=== PATIENT | female | born 1970 | race Caucasian/White ===

== ENCOUNTER 2017-01-16 17:24 | Emergency (ER) | payer BC ==
[2017-01-16 18:03] VITALS: BP 118/73
--- NOTE | 2017-01-16 18:46 | UC ---
Lower Extremity/Ankle HPI - HPI Summary HPI Summary: complaint of left 5th tpoe p[ain stubbed her toe thrsday seemed to get better and then for the last 2 days it has become more painful and discolred difficuklt to walk d/t pain difficulty flexing toe not taking any medication for pain - History of Current Complaint Chief Complaint: UCLowerExtremity Stated Complaint: TOE INJURY Time Seen by Provider: 01/16/17 18:41 Hx Obtained From: Patient Hx Last Menstrual Period: 12/30/16 - Allergies/Home Medications Allergies/Adverse Reactions: Allergies Allergy/AdvReac Type Severity Reaction Status Date / Time No Known Allergies Allergy Verified 12/06/16 07:24 Home Medications: Home Medications Calcium 1 PO DAILY 01/16/17 [History] Glucosamine Hydrochloride [Glucosamine] 1 PO DAILY 01/16/17 [History] PMH/Surg Hx/FS Hx/Imm Hx Previously Healthy: Yes Endocrine History Of: Denies: Diabetes, Thyroid Disease Cardiovascular History Of: Denies: Cardiac Disorders, Hypertension, Pacemaker/ICD Respiratory History Of: Denies: COPD, Asthma GI/ History Of: Denies: Ulcer, Renal Disease - Surgical History Surgical History: Yes Surgery Procedure, Year, and Place: RIGHT KN[place]OP[place] [facility] [place]OP[place] 08/[place] [facility] [place] TONSILLECTOM[place] 1977. LEFT OOPHERECTOMY 2012 - Family History Known Family History: Negative: Hypertension, Diabetes, Respiratory Disease - no asthma - Social History Occupation: Employed Full-time Lives: With Family Alcohol Use: Weekly Alcohol Amount: 3 PER WEEK Substance Use Type: None Smoking Status (MU): Former Smoker Type: Cigarettes Amount Used/How Often: 1/2 PACK A DAY Have You Smoked in the Last Year: No When Did the Patient Quit Smoking/Using Tobacco: 1997 - Immunization History Most Recent Influenza Vaccination: Review of Systems Constitutional: Negative Skin: Negative Eyes: Negative ENT: Negative Respiratory: Negative Cardiovascular: Negative Gastrointestinal: Negative Genitourinary: Negative Motor: Negative Neurovascular: Negative Musculoskeletal: Other: - right 5th toe pain Neurological: Negative Psychological: Negative All Other Systems Reviewed And Are Negative: Yes Physical Exam Triage Information Reviewed: Yes Appearance: No Pain Distress, Well-Nourished Vital Signs: Initial Vital Signs Temp 97.6 F 01/16/17 17:57 Pulse 84 01/16/17 17:57 Resp 18 01/16/17 17:57 BP 118/73 01/16/17 17:57 Pulse Ox 99 01/16/17 17:57 Vital Signs Reviewed: Yes Eyes: Positive: Conjunctiva Clear ENT: Positive: Pharynx normal, TMs normal Neck: Positive: No Lymphadenopathy Respiratory: Positive: Lungs clear, Normal breath sounds, No respiratory distress Cardiovascular: Positive: RRR, No Murmur, Pulses Normal Abdomen Description: Positive: Nontender, Soft Bowel Sounds: Positive: Present Musculoskeletal: Positive: Other: - No bony deformities, tenderness in fifth toe -with edema, Full ROM dorsi/plantar flexion, inversion & eversion. no metacarpal tenderness Lower Extremity Course/Dx - Differential Dx/Diagnosis Differential Diagnosis/HQI/PQRI: Contusion, Fracture (Closed) Provider Diagnoses: nondisplaced intaarticular fracture head of fifth proximal phalanx Discharge - Discharge Plan Condition: Stable Disposition: HOME Patient Education Materials: RICE Therapy (ED), Toe Fracture (ED) Referrals: Juancho Guzmán MD [Medical Doctor] - Additional Instructions: Please call financial services specialist for a followup appointment. keep your toes any taped together until you are seen by orthopedics They will evaluate and determine your treatment. It is important to keep weight off of your fracture. Take acetaminophen or ibuprofen to control pain and reduce inflammation. Please review your discharge instructions. If your symptoms worsen call financial services specialist or return to urgent care.
--- NOTE | 2017-01-16 19:15 | RAD ---
Indication: Pain medial aspect proximal phalanx LEFT fifth toe following stubbing injury 4 days ago. Comparison: March 25, 2012 Technique: 3 views LEFT fifth toe REPORT AND IMPRESSION: Grossly nondisplaced intra-articular fracture at the medial margin of the head of the fifth proximal phalanx. Overlying soft tissue swelling. Negative for additional fracture or articular malalignment.
== END 2017-01-16 20:01 | disposition home or self-care (01) ==
LOC: UCEAST 17:24
DX: S92.515A Nondisplaced fracture of proximal phalanx of left lesser toe(s), initial encounter for closed fracture (principal); W22.8XXA Striking against or struck by other objects, initial encounter; Y93.9 Activity, unspecified; Y92.9 Unspecified place or not applicable; Z87.891 Personal history of nicotine dependence
CPT/HCPCS: 99211; G0463

== ENCOUNTER 2018-06-06 18:12 | Emergency (ER) | payer BC, OTHER ==
[2018-06-06 18:39] VITALS: BP 138/89
[2018-06-06] MEDS ORDERED: BSS OPTH.SOL* BTL OPHTHALMIC ONE (19:14)
[2018-06-06] MEDS ORDERED: Tetracaine 0.5% OPTH.SOL 15ML* BTL ONE (19:14)
[2018-06-06] MEDS ORDERED: Fluorescein Sod TOPICAL 0.6* 0.6 MG TEST OPHTHALMIC ONE (19:15)
[2018-06-06] MEDS ORDERED: Tetracaine 0.5% OPTH.SOL 4 ML* 1 DROP BTL ONE (19:17)
--- NOTE | 2018-06-06 20:09 | UC ---
Eye Complaint HPI - HPI Summary HPI Summary: sudden onset of left eye pain---began this afternoon---reminded her of a past episode of a corneal ulceration she had---she removed he contact--pain continues. light does both her left eye-her eye feels like the is a lt of pressure in it ---no drainage from her eye-- - History of Current Complaint Chief Complaint: UCEye Stated Complaint: EYE COMPLAINT Time Seen by Provider: 06/06/18 19:13 Hx Obtained From: Patient Hx Last Menstrual Period: now ?: No Onset/Duration: Sudden Onset, Lasting Hours, Still Present Timing: Constant Pain Intensity: 4 Pain Scale Used: 0-10 Numeric Character: Throbbing - /heaviness Aggravating Factor(s): Light Alleviating Factor(s): Darkness Associated Signs And Symptoms: Positive: Drainage (Clear) - Allergies/Home Medications Allergies/Adverse Reactions: Allergies Allergy/AdvReac Type Severity Reaction Status Date / Time No Known Allergies Allergy Verified 06/06/18 18:39 PMH/Surg Hx/FS Hx/Imm Hx Previously Healthy: Yes - Surgical History Surgical History: Yes Surgery Procedure, Year, and Place: RIGHT KNEE SCOPING 2005 [facility] [place]. REDUCTION MAMMOPLASTY 08/30 AND FEBRUARY 2016 [facility] [place]. TONSILLECTOMY 1977. LEFT OOPHERECTOMY 2012 - Family History Known Family History: Positive: Diabetes Negative: Hypertension, Respiratory Disease - no asthma - Social History Occupation: Employed Full-time Lives: With Family Alcohol Use: Occasionally Alcohol Amount: 3 PER WEEK Substance Use Type: Marijuana Smoking Status (MU): Former Smoker Type: Cigarettes Amount Used/How Often: 1/2 PACK A DAY Have You Smoked in the Last Year: No When Did the Patient Quit Smoking/Using Tobacco: 1997 - Immunization History Most Recent Influenza Vaccination: Review of Systems Constitutional: Negative Skin: Negative Eyes: Other - left eye pain heaviness, photophobia ENT: Negative Respiratory: Negative Cardiovascular: Negative Gastrointestinal: Negative Genitourinary: Negative Motor: Negative Neurovascular: Negative Musculoskeletal: Negative Neurological: Negative Psychological: Negative Is Patient Immunocompromised?: No All Other Systems Reviewed And Are Negative: Yes Physical Exam Triage Information Reviewed: Yes Appearance: Well-Appearing, No Pain Distress, Well-Nourished Vital Signs: Initial Vital Signs Temp 97.7 F 06/06/18 18:34 Pulse 65 06/06/18 18:34 Resp 18 06/06/18 18:34 BP 138/89 06/06/18 18:34 Pulse Ox 99 06/06/18 18:34 Vital Signs Reviewed: Yes Eye Exam: Other - appears to have a ptegium at 4:00 in left eye (patient believes it has been present for 2 weeks Eyes: Positive: Conjunctiva Clear - right, Conjunctiva Inflamed - left ENT Exam: Normal ENT: Positive: Normal ENT inspection, Hearing grossly normal, Pharynx normal, TMs normal, Uvula midline. Negative: Nasal congestion, Trismus, Muffled voice, Hoarse voice, Sinus tenderness Dental Exam: Normal Neck exam: Normal Neck: Positive: Supple, Nontender, No Lymphadenopathy Respiratory Exam: Normal Respiratory: Positive: Chest non-tender, No respiratory distress, No accessory muscle use Cardiovascular Exam: Normal Cardiovascular: Positive: RRR, Pulses Normal, Brisk Capillary Refill Musculoskeletal Exam: Normal Musculoskeletal: Positive: Strength Intact, ROM Intact, No Edema Neurological Exam: Normal Neurological: Positive: Alert, Muscle Tone Normal Psychological Exam: Normal Psychological: Positive: Normal Response To Family Skin Exam: Normal Re-Evaluation - Re-Evaluation First Eval Change: Improved - patient got complete pain relief with tetraciane and visual acuity was completed od 20/25 os 20/50 ou 20/25 , ful. stain completed no ulcers or abrasions noted Eye Complaint Course/Dx - Course Course Of Treatment: no optholo. 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 will d.c patient from urgent care and have patient evaluated at [facility] emergency depatment for an acute opthomology assessment - Differential Dx/Diagnosis Provider Diagnoses: Left eye pain, photophobia Discharge - Sign-Out/Discharge Documenting (check all that apply): Patient Departure All imaging exams completed and their final reports reviewed: No Studies - Discharge Plan Condition: Stable Disposition: HOME-RECOMMEND TO ED Patient Education Materials: Eye Pain (ED) Referrals: Lupe De La Vega MD [Primary Care Provider] - Additional Instructions: We are discharging you to go directly to the [facility] Emergency department for further evaluation of your eye pain - Billing Disposition and Condition Condition: STABLE Disposition: Home-Recommend to ED
[2018-06-06] MEDS ORDERED: Ibuprofen TAB* 600 MG PO ONE (20:17)
== END 2018-06-06 20:45 | disposition home health service (06) ==
LOC: UCEAST 18:12
DX: H57.12 Ocular pain, left eye (principal); Z87.891 Personal history of nicotine dependence; H53.142 Visual discomfort, left eye
CPT/HCPCS: 99202; A9270-GY; G0463

== ENCOUNTER → 2018-10-26 05:57 | Day surgery (SDC) | payer BC ==
[~2018-10-26 05:57] MED LIST: Buffered Lidocaine 0.9% SYRIN* 5 ML/SYR SYRINGE INTRADERM ONE; Buffered Lidocaine 1% SYRIN* 1 ML/SYRINGE ONE; Dexamethasone IV* 4 MG/ML 1 ML (4 MG) ONE; Ibuprofen TAB* 600 MG PO PRN; Ketorolac INJ* 30 MG/ML 1 ML VIAL ONE; Lactated Ringers 1000 ML Bag* 1,000 ML IV SCH; Lidocaine 2% PF * 5 ML VIAL ONE; Metoclopramide IV* 5 MG/ML 2 ML VIAL ONE; Midazolam* 1 MG/ML 2 ML VIAL (2 MG) ONE; Ondansetron INJ* 2 MG/ML VIAL ONE; Propofol* 10 MG/ML 20 ML BTL ONE; Scopolamine 1.5 mg* PATCH ONE; ceFAZolin 2 GM PREMIX in ORs 2 GM/50 ML BAG IVPB ONE; fentaNYL* 50 MCG/ML 2 ML VIAL (100 MCG VIAL) ONE; oxyCODONE/Acetamin 5/325 MG* TAB PO PRN
[2018-10-26 07:11] LABS: Hematocrit 35 % (35-47); Hemoglobin 12.2 g/dl (12.0-16.0); Mean Corpuscular HGB Conc 35 g/dl (31-36); Mean Corpuscular Hemoglobin 31 pg (27-31); Mean Corpuscular Volume 89 fL (80-97); Mean Platelet Volume 7.4 fL (7.4-10.4); Platelet Count 262 10^3/ul (150-450); Red Blood Count 3.94 10^6/ul (4.00-5.40); Red Cell Distribution Width 13 % (10.5-15); White Blood Count 5.5 10^3/ul (3.5-10.8)
[2018-10-26 10:17] VITALS: BP 127/78
--- NOTE | 2018-10-26 13:58 | OP ---
CC: [facility] * DATE OF OPERATION: 10/26/18 - [facility] DATE OF : 66 SURGEON: Juan Francisco Servin MD. CONTROL ENGINEER: Dr. Cristino Santos. PRE-OP DIAGNOSES: Enlarged fibroid uterus, a 3-cm fibroid at the junction of the cervix and the uterus, menorrhagia, retained intrauterine device. POST-OP DIAGNOSES: Enlarged fibroid uterus, a 3-cm fibroid at the junction of the cervix and the uterus, menorrhagia, retained intrauterine device. OPERATIVE PROCEDURE: Dilation, hysteroscopy, MyoSure removal of fibroid, hysteroscopic removal of intrauterine device, and curettage. ESTIMATED BLOOD LOSS: Minimal, less than 20 cc. FLUIDS: In 1200 cc and out 1000. The MyoSure collection system was no longer operating. A large amount of fluid was on the floor, but counting the bags and counting what was suctioned, the deficit is approximately 200 cc. FINDINGS: Approximately 3 cm fibroid seen hysteroscopically at the junction of the internal os and it had a pedicle attached to the posterior endometrium. The remainder of the endometrium appeared normal. Both tubal ostia were visualized. The uterus sounded to 10. The intrauterine device was within the uterus with the strings approximately at the level of the internal os and the intrauterine device was examined when it was removed and found to be intact. The cervix is posterior and appears normal and no adnexal masses are palpated on exam. COMPLICATIONS: None. COUNTS: Sponge, lap, and needle counts were correct x2. CONDITION: The patient was brought to the recovery room awake and in stable condition. DESCRIPTION OF PROCEDURE: The patient was brought to the operating room and general anesthesia was found to be adequate. The patient was prepped and draped in the usual sterile fashion in the dorsal lithotomy position. Exam under anesthesia was performed. Urine output with a straight cath was 600 cc of clear urine. Cervix was posterior, appeared normal. The IUD strings were not visualized at the cervix. The anterior lip of the cervix was grasped with a single tooth tenaculum. The cervix was gently and easily dilated with the graduated Hegar dilators and the MyoSure was introduced. A large, round fibroid was seen at approximately the level of the internal os. The IUD strings were seen somewhat adjacent to this. The IUD strings were grasped with a tiny grasper and the IUD was easily removed intact. The MyoSure medium was used to excise the fibroid at the pedicle. The hysteroscope was advanced, the fundus was visualized. No other polyps were seen. Both tubal ostia were visualized. The fibroid was removed in pieces with the polyp forceps and curettage was performed and a separate specimen of endometrial curettings was sent. The single-tooth tenaculum was removed from the cervix. Excellent hemostasis was noted. All instruments were removed and the patient was brought to the recovery room awake and in stable condition. [id number]/[facility] #: [id number] MTDD
== END | disposition home or self-care (01) ==
LOC: OR 05:57
PROVIDERS: ATTEND Obstetrics & Gynecology
DX: D25.0 Submucous leiomyoma of uterus (principal); N92.4 Excessive bleeding in the premenopausal period; Z87.891 Personal history of nicotine dependence; Z97.5 Presence of (intrauterine) contraceptive device
CPT/HCPCS: 36415; 81025; 85027; 86850; 86900; 86901; 88300; 88305; A9270-GY; J0690; J1100; J1885; J2250; J2405; J2704; J2765; J3010

== ENCOUNTER 2019-06-24 17:50 | Observation (INO) | payer BC ==
[2019-06-24] MEDS ORDERED: NS 0.9% 1000 ML** 1,000 ML IV ONE (17:59)
--- NOTE | 2019-06-24 18:03 | ED ---
Neurological HPI - HPI Summary HPI Summary: This pt is a 48 y/o female [facility] [place] [place]/o numbness and tingling on right hand. Pt reports at approximately 1515 today pt was having difficulty entering a password into her computer. Suddenly pt noticed her right fingers were numb and tingling, described as "pins and needles." Pt also felt the right side of her face went numb and she looked at her face on her iPhone and looked like she had facial droop. Pt notes this event of tingling and numbness lasted approximately 10 minutes. Pt then went to her work meeting and states she couldn 't focus but her tingling had already resolved. She notes she then developed pounding headache. Currently she states feeling stressed. Denies hx of HTN and actually has had blood pressure on the low side her whole life until a few weeks ago. Denies hx of DM and high cholesterol. Pt reports she went back on the pill a few months ago. - History of Current Complaint Stated Complaint: I HAVE STROKE LIKE SYMPTOMS PER PT Hx Obtained From: Patient Hx Last Menstrual Period: now Onset/Duration: Started hours ago, Resolved Timing: Sudden Onset Onset Severity: Moderate Neurological Deficit Location: Facial, RUE Character: Numbness/Tingling, Other: - facial droop Aggravating: Nothing Alleviating: Nothing Associated Signs and Symptoms: Positive: Headache, Numbness. Negative: Fever - Allergy/Home Medications Allergies/Adverse Reactions: Allergies Allergy/AdvReac Type Severity Reaction Status Date / Time No Known Allergies Allergy Verified 10/26/18 06:45 Home Medications: Home Medications NK [No Home Medications Reported] 06/24/19 [History Confirmed 06/24/19] PMH/Surg Hx/FS Hx/Imm Hx Endocrine/Hematology History: Reports: Hx Anemia - ON IRON Denies: Hx Diabetes, Hx Thyroid Disease Cardiovascular History: Reports: Other Cardiovascular Problems/Disorders - HX PERICARDITIS 17 YRS AGO Denies: Hx Hypertension, Hx Pacemaker/ICD Respiratory History: Denies: Hx Asthma, Hx Chronic Obstructive Pulmonary Disease (COPD) GI History: Denies: Hx Ulcer History: Reports: Other Problems/Disorders - BENIGN CSYST DOES FOLLOWUP WITH Denies: Hx Dialysis, Hx Renal Disease Musculoskeletal History: Denies: Other Musculoskeletal History Sensory History: Reports: Hx Contacts or Glasses - CONTACTS Denies: Hx Hearing Aid Opthamlomology History: Reports: Hx Contacts or Glasses - CONTACTS Psychiatric History: Denies: Hx Panic Disorder - Cancer History Hx Chemotherapy: No Hx Radiation Therapy: No - Surgical History Surgery Procedure, Year, and Place: RIGHT KNEE SCOPING 2005 [facility] [place]. REDUCTION MAMMOPLASTY 08/30 AND FEBRUARY 2016 [facility] [place]. TONSILLECTOMY 1977. LEFT OOPHERECTOMY 2012 Hx Anesthesia Reactions: No Infectious Disease History: Denies: Hx Hepatitis, Hx Human Immunodeficiency Virus (HIV) - Family History Known Family History: Positive: Diabetes Negative: Hypertension, Respiratory Disease - no asthma - Social History Alcohol Use: Occasionally Alcohol Amount: 3 PER WEEK Substance Use Type: Reports: Marijuana Smoking Status (MU): Former Smoker Type: Cigarettes Amount Used/How Often: 1/2 PACK A DAY Have You Smoked in the Last Year: No Review of Systems Negative: Fever, Chills ENT: Negative Cardiovascular: Negative Neurological: Other - POSITIVE: facial droop Positive: Headache, Paresthesia, Numbness All Other Systems Reviewed And Are Negative: Yes Physical Exam - Summary Physical Exam Summary: GENERAL: Patient is a well-developed and nourished female who is lying comfortable in the stretcher. Patient is not in any acute respiratory distress. HEAD AND FACE: Normocephalic EYES: PERRLA, EOMI x 2. EARS: Hearing grossly intact. MOUTH: Oropharynx within normal limits. NECK: Supple, trachea is midline, no adenopathy, no JVD, no carotid bruit. CHEST: Symmetric, no tenderness at palpation LUNGS: Clear to auscultation bilaterally. No wheezing or crackles. CVS: Regular rate and rhythm, S1 and S2 present, no murmurs or gallops appreciated. ABDOMEN: Soft, non-tender. Bowel sounds are normal. No abnormal abdominal pulsations. EXTREMITIES: Full ROM in all major joints, no edema, no cyanosis or clubbing. NEURO: Alert and oriented x 3. No acute neurological deficits. Speech is normal and follows commands. Cranial nerves II-XII grossly intact, no dysmetria finger to nose, nml heel to solis SKIN: Dry and warm Triage Information Reviewed: Yes Vital Signs On Initial Exam: Initial Vitals Temp Pulse Resp BP Pulse Ox 97.6 F 90 18 213/117 97 06/24/19 17:58 06/24/19 17:58 06/24/19 17:58 06/24/19 17:58 06/24/19 17:58 Vital Signs Reviewed: Yes - Layla Coma Scale Best Eye Response: 4 - Spontaneous Best Motor Response: 6 - Obeys Commands Best Verbal Response: 5 - Oriented Coma Scale Total: 15 Diagnostics - Laboratory Result Diagrams: 06/24/19 18:49 06/24/19 18:49 Lab Statement: Any lab studies that have been ordered have been reviewed, and results considered in the medical decision making process. - Radiology Chest XR Radiology Interpretation Completed By: ED Physician Summary of Radiographic Findings: No acute process. - CT Brain CT CT Interpretation Completed By: Radiologist Summary of CT Findings: IMPRESSION: 1. No acute intracranial abnormality. 2. If further evaluation is clinically indicated, an MRI of the brain is recommended. Dr. Parks has reviewed this report. - EKG 19:15 Cardiac Rate: NL - at 61 bpm EKG Rhythm: Sinus Rhythm Summary of EKG Findings: normal sinus rhythm at 61 bpm. Normal axis. - Additional Comments Diagnostic Additional Comments: Brain MRI, as read by radiologist IMPRESSION: 1. There is no restricted diffusion within the brain to suggest an acute infarct. 2. There is a focus of magnetic susceptibility blood products/hemosiderin within the left frontal white matter, without acute hemorrhage on recent head CT. This measures 5-6 mm in diameter. Cavemous malformation and amyloid angiopathy are within the differential. A follow-up MRI with/without contrast is recommended. 3. There are a few small foci of FLAIR hyperintensity within the cerebral white matter. This white matter disease is nonspecific as to etiology, as detailed above. NIH Scale - NIH Scale Level of Consciousness: Alert/Keenly Responsive Ask Patient the Month and His/Her Age: Both Correct Ask Pt to Open/Close Eyes and Electronic Masking System Operator/Release Non-Paretic Hand: Both Correctly Best Gaze (Only Horizontal Eye Movement): Normal Visual Field Testing: No Visual Loss Facial Paresis-Pt to Smile & Close Eyes or Grimace Symmetry: Normal/Symmetrical Motor Function - Right Arm: No Drift-Holds 10 Seconds Motor Function - Left Arm: No Drift-Holds 10 Seconds Motor Function - Right Leg: No Drift-Holds 10 Seconds Motor Function - Left Leg: No Drift-Holds 10 Seconds Limb Ataxia-Must be out of Proportion to Weakness Present: Absent Sensory (Use Pinprick to Test Arms/Legs/Trunk/Face): Normal Best Language (Describe Picture, Name Items): No Aphasia Dysarthria (Read Several Words): Normal Extinction and Inattention: No Abnormality Total Score: 0 Course/Dx - Course Course Of Treatment: Rodo Campbell called at 175. Pt seen immediately by Dr. Parks. [place] Tele Stroke initiated at 1804. Pt to CT at 1807. Spoke with Dr. Whitley, neurologist from [facility], at 1813. Pt back from CT at 1815. Dr. Lindquist, radiologist, reports negative brain CT at 1829. Assessment/Plan: Pt is a 48 y/o female presenting [facility] c/o numbness and tingling on right arm and numbness on right side of face at approx 1515 today. Physical exam is unremarkable. NIH score is 0. Lab results are unremarkable. Brain CT shows 1. No acute intracranial abnormality. 2. If further evaluation is clinically indicated, an MRI of the brain is recommended. Discussed the case with Dr. Whitley, neurologist from [facility]. Telestroke was initiated. Dr. Whitley recommends admission, MRI, CTA head/neck, lipid panel , hemoglobin A1c. Case discussed with Dr. Rutherford, hospitalist. I discussed results with patient. The patient agrees with this plan. MRI and CTA results pending at time of admission. - Diagnoses Provider Diagnoses: TIA (transient ischemic attack) During the Visit The Following Alert/Code Occurred: Rodo Campbell - 175 - Physician Notifications Discussed Care Of Patient With: Paul Lindquist Time Discussed With Above Provider: 18:29 Instructed by Provider To: Other - Dr. Lindquist, radiologist, reports negative brain CT. [19:05] Case discussed with Dr. Rutherford, hospitalist. - Critical Care Time Critical Care Time: 30-74 min Discharge ED - Sign-Out/Discharge Documenting (check all that apply): Patient Departure - Admit to [facility] Patient Received Moderate/Deep Sedation with Procedure: No - Discharge Plan Condition: Stable Disposition: ADMITTED TO [facility] Referrals: Lupe De La Vega MD [Primary Care Provider] - - Billing Disposition and Condition Condition: STABLE Disposition: Admitted to [facility] - Attestation Statements Document Initiated by Scribe: Yes Documenting Scribe: Migdalia Nicole Provider For Whom Scribe is Documenting (Include Credential): Bartolo Parks MD Scribe Attestation: Migdalia Linton scribed for Bartolo Parks MD on 06/24/19 at 2122. Scribe Documentation Reviewed: Yes Provider Attestation: The documentation as recorded by the scribMigdalia cai accurately reflects the service I personally performed and the decisions made by me, Bartolo Parks MD Status of Scribe Document: Viewed
[2019-06-24] MEDS ORDERED: Labetalol IV* 5 MG/ML 20 ML VIAL IV PUSH ONE (18:52)
[2019-06-24 18:56] LABS: ABS Basophils 0.1 10^3/ul (0-0.2); ABS Eosinophils 0.3 10^3/ul (0-0.6); ABS Lymphocytes 1.8 10^3/ul (1.0-4.8); ABS Monocytes 0.7 10^3/ul (0-0.8); ABS Neutrophils 3.5 10^3/ul (1.5-7.7); Eosinophil % 4.1 %; Hematocrit 40 % (35-47); Hemoglobin 13.9 g/dL (12.0-16.0); Lymphocyte % 28.5 %; Mean Corpuscular HGB Conc 35 g/dL (31-36); Mean Corpuscular Hemoglobin 31 pg (27-31); Mean Corpuscular Volume 90 fL (80-97); Mean Platelet Volume 7.8 fL (7.4-10.4); Nucleated Red Blood Cells % 0.1; Platelet Count 247 10^3/uL (150-450); Red Blood Count 4.48 10^6 /uL (3.70-4.87); Red Cell Distribution Width 13 % (10-15); White Blood Count 6.3 10^3/uL (3.5-10.8)
[2019-06-24 19:04] LABS: INR 0.92 (0.82-1.09)
[2019-06-24] MEDS ORDERED: Aspirin 81 mg CHEW TAB* 81 MG TAB.CHEW PO ONE (19:05)
[2019-06-24] MEDS ORDERED: Clopidogrel TAB* 75 MG PO ONE (19:05)
[2019-06-24 19:15] LABS: Albumin 4.1 g/dL (3.2-5.2); Albumin/Globulin Ratio 1.8 (1-3); BUN/Creatinine Ratio 15.2 (8-20); Calcium 9.1 mg/dL (8.6-10.3); EGFR African American 78.2 (>60); EGFR Non-African American 64.6 (>60); Globulin 2.3 g/dL (2-4); HDL Cholesterol 60.5 mg/dL; Potassium 3.9 mmol/L (3.5-5.0); Total Bilirubin 0.4 mg/dL (0.2-1.0); Total Protein 6.4 g/dL (6.4-8.9)
[2019-06-24] MEDS ORDERED: Iohexol 350* (CONTRAST) 500 ML MDV IV ONE (19:19)
[2019-06-24] MEDS ORDERED: Acetaminophen TAB* 325 MG PO PRN (21:24)
[2019-06-24 22:36] LABS: TSH (Thyroid Stimulating Horm) 2.06 mcIU/mL (0.34-5.60)
[2019-06-24] MEDS ORDERED: Atorvastatin* 80 MG TAB PO ONE (23:15)
[2019-06-25 00:34] LABS: Urine Appearance Clear; Urine Bacteria Absent (Absent); Urine Bilirubin Negative (Negative); Urine Blood 2+ (Negative); Urine Color Yellow; Urine Glucose Negative (Negative); Urine Ketones Negative (Negative); Urine Nitrite Positive (Negative); Urine Protein Negative (Negative); Urine Red Blood Cell 2+(6-10/hpf) (Absent); Urine Specific Gravity 1.018 (1.010-1.030); Urine Squamous Epithelial Cell Present (Absent); Urine Urobilinogen Negative (Negative); Urine White Blood Cell 3+(>20/hpf) (Absent)
--- NOTE | 2019-06-25 02:16 | HP ---
CC: Dr. De La Vega * HISTORY AND PHYSICAL: DATE OF ADMISSION: 06/24/19 PROVIDER: Melody Wyman NP. PRIMARY CARE PROVIDER: Dr. De La Vega. ATTENDING PHYSICIAN WHILE IN THE HOSPITAL: Dr. Ammy Alberts * (dictated by Melody Wyman NP). CHIEF COMPLAINT: Right-sided hand, arm, and facial numbness and tingling. HISTORY OF PRESENT ILLNESS: Ms. Álvarez is a 48-year-old female with a past medical history significant for fibroids, who presented to the emergency room with complaints of numbness and tingling to her right hand, arm, and right face. The patient reports that she was at work today and at approximately 4:05 p.m. she developed numbness and tingling in her hand. She reports that she was trying to type her password in the computer and she typed her password, but what showed up on the screen was not what her password was. She reports shortly after that she developed some numbness and tingling in her hand that progressed up to her arm and to the right side of her face. She reports that these symptoms lasted for about 15 to 20 minutes and were totally resolved by 4: 35 p.m. The patient does report during this time she was having trouble focusing. She denies any difficulty with speech, swallowing or any loss of motor function in her upper or lower extremities. The patient does report that after her numbness and tingling subsided on the right side she did get a severe headache noted behind her left eye. She describes it as a pounding, with mild radiation to the right side. The patient does report that she is in a high stress job at this time, and she is currently filling three positions. She does report that she travels a lot. She recently traveled to [place] and returned on , but she denies any calf or leg pain. Denies any shortness of breath, palpitation, coughing up blood or any other symptoms. Due to the right- sided numbness and tingling a shavonne lyon was called in the emergency room and Telestroke from [place] was consulted who did not recommend tPA. While in the emergency room, the patient had a routine blood work drawn. She had a CTA and an MRI. The CTA of brain that did not show any acute infarct or hemorrhages. The CTA did now show any significant stenosis. Her lab work was within normal limits. Due to the right-sided numbness, facial tingling, and right-sided facial numbness, Hospital Medicine was asked to see and evaluate the patient for admission. PAST MEDICAL HISTORY: Significant for fibroids. PAST SURGICAL HISTORY: 1. Left oophorectomy for a cyst. 2. Right knee surgery. 3. Tonsillectomy. 4. Breast reduction. 5. Fibroid removed. 6. Breast biopsy approximately 2 weeks ago that was negative. HOME MEDICATIONS: Include multivitamin, takes periodically; iron, glucosamine, and Lessina 28, control pills. ALLERGIES: No known drug allergies. FAMILY HISTORY: No reported history of coronary artery disease. Mother with diabetes, late onset at the age of 65, mother with breast cancer. Father had nasopharyngeal carcinoma and at age 51. SOCIAL HISTORY: The patient reports that she quit smoking 30 years ago. Prior to that, she smoked for approximately 5 to 8 years, a quarter-pack a day. No alcohol or illicit drug use. 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 She is . Surrogate decision maker, in the event she is unable to make her own decisions, is her . She is a full code. REVIEW OF SYSTEMS: She denies any fever, chills, unintended weight loss, chest pain or edema. No cough, hemoptysis, or shortness of breath. No nausea, vomiting or diarrhea, hematuria or dysuria. She did complain of right arm, hand , and facial numbness, which have all resolved at the time of this evaluation. She denied any visual complaints during her entire episode. Denied any difficulty swallowing, arthralgias, myalgias, rashes, lesions, open sores, psychosis or anxiety. PHYSICAL EXAMINATION GENERAL: At this time, Ms. Álvarez is alert and oriented. She is resting on the stretcher in the emergency room. She is in no acute distress. VITAL SIGNS: Blood pressure 158/100, heart rate 66, respirations are 16, O2 saturation 98%, temperature was 97.6. HEENT: Head is atraumatic, normocephalic. Eyes: EOMs are intact. Sclerae anicteric and not pale. Oral mucosa appeared to be moist. NECK: Supple. LUNGS: Clear to auscultation bilaterally. No wheezes, rales or rhonchi. CARDIAC: S1 and S2. Regular rate and rhythm. No murmurs rubs or gallops. ABDOMEN: Soft and nontender. Bowel sounds are present x4. NEUROLOGIC: She is awake, alert, oriented x3. Speech is clear. Thought process is intact. There are no gross focal deficits. Smile is equal. Tongue is midline. Ovgxwj-qf-leip is intact. Shoulder shrug is intact. Hand auto rental clerk are equal bilaterally. There is no pronator drift. There is no leg drift. Push/pull is intact. Sensation is intact to all 4 extremities, with no abnormality. Finger-to- nose is intact. SKIN: Intact. DIAGNOSTIC STUDIES/LAB DATA: WBCs are 6.3, RBCs 4.4, hemoglobin 13.9, hematocrit 40, platelet count 247. INR is 0.92, APTT is 31. Sodium 138, potassium 3.9, chloride 107, carbon dioxide is 25, anion gap of 6, BUN is 14, creatinine 0.92, glucose is 96. Hemoglobin A1c is 5.4. Lactic acid is 0.8, calcium 9.1. AST is 13, ALT is 10, alkaline phosphatase is 49. Troponin is 0.00. Albumin 4.1. Cholesterol is 219, LDL is 129. TSH is 2.06. Vitamin B12 is 290. She had a CT of the brain. Radiologist's impression: No acute intracranial pathology. She had a chest x-ray, reading is currently pending. No evidence of acute cardiopulmonary disease. She had an MRI of the brain. Radiologist's impression. There is no restricted diffusion within the brain to suggest acute infarct. There is a focus of magnetic susceptibility blood products, hemosiderin, within the left frontal white matter, without acute hemorrhage on recent CT. This measures 5 to 6 mm in diameter. Cavernous malformation and amyloid angiopathy are within the differential. Followup MRI with and without contrast is recommended. There is a small foci of FLAIR hyperintensity within the cerebral white matter. This white matter disease is nonspecific as to etiology. She had a CTA of the head and neck. Radiologist's impression: No stenosis or occlusion of the extracranial internal carotid arteries bilaterally. A dominant left vertebral artery is identified. Within the left thyroid lobe there is a 7 mm hypodense nodule. She had an electrocardiogram, which showed sinus rhythm at a rate of 61. No ST or T-wave changes. ASSESSMENT AND PLAN: Ms. Álvarez is a 48-year-old female with past medical history significant for fibroids, who presented to the emergency room with complaints of right-sided hand, arm, and facial numbness that lasted for approximately 15 to 20 minutes and has completely resolved at the time of my evaluation. She will be admitted for: 1. Rule out transient ischemic attack: The patient did have a CT of the brain , an MRI, and a CT that showed no acute infarct. She was initially a code lyon and sent to [facility], which did not recommend a tPA. The patient was given aspirin and Plavix in the emergency room. We will continue her on baby aspirin 81 mg and 75 mg of Plavix. I did talk to Dr. Whitehead from Neurology, who will see the patient in consultation tomorrow. We will get an MRI of the brain with contrast as per his recommendation and an echo with bubble study. I will start her on atorvastatin 80 mg due to her LDL being 129. I will get a fasting A1c in the a.m. She will have neuro checks q.4 hours. PT/OT consultation. 2. Hypertension: The patient was hypertensive on admission to the emergency room. She did receive 20 of labetalol in the ER. We will allow for permissive hypertension and we will treat for systolic blood pressure greater than 200. 3. FEN: She can have a regular diet. 4. Code status: She is a full code. 5. DVT prophylaxis: I will place her on SCDs. TIME SPENT: Time spent on this admission was approximately 60 minutes, greater than half of that time was spent at the bedside reviewing the events leading thus far to her hospitalization, performing physical exam, and reviewing my plan of care. MELODY WYMAN, TERRI [id number]/[facility] #: [id number] JACKIE
[2019-06-25] MEDS ORDERED: Clopidogrel TAB* 75 MG PO SCH (09:00)
[2019-06-25] MEDS ORDERED: Aspirin EC TAB* 81 MG TAB.EC PO SCH (09:00)
--- NOTE | 2019-06-25 10:51 | PN ---
Subjective Date of Service: 06/25/19 Interval History: 48 y/o F with PMH of Fibroid presented yesterday night with c/o numbness and tingling on right arm, hand and face which lasted for about 20 min followed by severe left sided headache. Had hypertensive urgency on presentation. Normal Brain CT. MRI with contrast showed finding suggestive of cavernous angioma.. Head CTA showed mild stenosis of proximal segment of R MCA. Neuro consultation done who has advised on continuing aspirin and plavix. No complaint at present, no further neurologic defecit, no SCHWARZ. Objective Active Medications: Acetaminophen (Tylenol Tab*) 650 mg PO Q4H PRN PRN Reason: MILD PAIN or TEMP > 100.4 Aspirin (Aspirin Ec Tab*) 81 mg PO DAILY [facility] Last Admin: 06/25/19 09:50 Dose: 81 mg Atorvastatin Calcium (Lipitor*) 80 mg PO 2100 ONE Stop: 06/25/19 21:01 Clopidogrel Bisulfate (Plavix Tab*) 75 mg PO DAILY [facility] Last Admin: 06/25/19 09:51 Dose: 75 mg Vital Signs - 8 hr 06/25/19 04:17 Temperature 97.9 F Pulse Rate 63 Respiratory 16 Rate Blood Pressure 143/78 (mmHg) O2 Sat by Pulse 97 Oximetry Oxygen Devices in Use Now: None Exam: Patient is lying on a bed with no any acute distress. HEENT: Normocephalic and atraumatic. Lungs: CLear vesicular sound with no any added sound. Heart: S1/S2 heard with no any murmur. Abdomen: Soft, nondistended and nontender. Normal bowel sound heard. Neuro: Alert. conscious and oriented. CN intact. Motor and sensory function intact on all four extremity. Extremity: Normal Result Diagrams: 06/24/19 18:49 06/24/19 18:49 Assess/Plan/Problems-Billing Assessment: 48 y/o F with PMH of Fibroid s/p myomectomy presented yesterday night with c/o numbness and tingling on right arm, hand and face which lasted for about 20 min followed by severe left sided headache, admitted for r/o TIA DDX HTN Urgency/ emergency as well - Patient Problems (1) Numbness and tingling Current Visit: Yes Status: Acute Code(s): R20.0 - ANESTHESIA OF SKIN; R20.2 - PARESTHESIA OF SKIN SNOMED Code(s): 630517777734 Comment: Trasient numbness and tingling of right hand, arm and face. lasted for 20 minute. Could be due to TIA or nonspecific. Was taking hormonal pill; stopped recently. CT is normal. CTA Head showed mild stenosis on Right MCA. Neuro consultation done, they feel most likely HTN related but can't r/o TIA thus recommending 30 days DAPT MRI with contrast showed no any acute changes except incidental finding of cavernous hemangioma. Plan is to continue aspirin and plavix for 30 days with aspirin thereafter. (2) Hypertensive urgency Current Visit: Yes Status: Acute Code(s): I16.0 - HYPERTENSIVE URGENCY SNOMED Code(s): 267195045 Comment: On presentation her BP was > 200/110 mm Hg. Given iv labetalol. NOw her BP is decreasing. NO history of HTN. Plan is to continue her lisinopril 5 mg and follow up with her PCP. (3) Thyroid nodule Current Visit: Yes Status: Acute Code(s): E04.1 - NONTOXIC SINGLE THYROID NODULE SNOMED Code(s): 335203299 Comment: No any symptoms. nOrmal TSH. CTA showed 7 mm hypodense thyroid nodule. will follow up with her PCP and endocrine. (4) DVT prophylaxis Current Visit: Yes Status: Acute Code(s): Z29.9 - ENCOUNTER FOR PROPHYLACTIC MEASURES, UNSPECIFIED SNOMED Code(s): 337571910 Comment: SCD (5) Full code status Current Visit: Yes Status: Acute Code(s): Z78.9 - OTHER SPECIFIED HEALTH STATUS SNOMED Code(s): 743064417 Status and Disposition: DC to home if echo stable Attending: Lilibeth Rutherford Attestation Documenting Resident: Anna López Supervising Physician: Ofelia Rutherford Attestation: This service has been performed in part by a resident under the direction of a teaching physician.I, Ofelia Rutherford, performed the service, or was physically present during the critical, or preston portions of the service, furnished by the resident. I participated in the management of the patient.
[2019-06-25] MEDS ORDERED: Gadoteridol* (CONTRAST) 279.3 MG/ML 10 ML IV ONE (10:52)
--- NOTE | 2019-06-25 13:15 | CONS ---
CC: Dr. De La Vega * CONSULTATION REPORT: DATE OF CONSULT: 06/25/19 LOCATION: Room 453. PRIMARY CARE PROVIDER: Dr. De La Vega. REASON FOR CONSULT: TIA with right-sided numbness and tingling and right facial droop. HISTORY OF PRESENT ILLNESS: Ms. Álvarez is a very nice 48-year-old female who has a past medical history of fibroids, status post excision. She otherwise has been healthy. She has no history of blood clotting disorders, miscarriages , PEs. No family history of blood clotting disorders. She was in her usual state of health when yesterday at 4 p.m. she was preparing for a meeting. At that time, she started to develop numbness and tingling in her right hand. She tried to shake it off. She notes that she has been having some shoulder and neck issues over the last several months, but she states that this felt different. She did not notice any weakness. Subsequently a few minutes later, she developed right facial numbness and she states that she looked through her phone, in that she saw some right facial droop. She actually did make it to the meeting and made it through the meeting and afterwards was getting better, but called her who said that she should go to the ER. During this time , she developed a okfmjodc-jj-teuibx headache behind the left eye, although she has no history of migraine headaches. She does occasionally get musculoskeletal or tension type headaches, but these are more generalized and generally improved with an Aleve. Yesterday, she did take two Aleve before she came to the ER. By the time she arrived in the ER, her symptoms had largely resolved. She states by the time she got to the ER her headache was almost gone. Throughout the entire episode, she had no focal weakness, she had no vision changes, she had no speech difficulties or swallowing difficulty, she was completely aware of what was going on, she had no other focal symptoms on the left side. She noted no palpitations or chest pain, shortness of breath. She has had no recent illnesses. No fevers or chills. No diarrhea or constipation. She has been on oral control pill for the last several months, but recently has wanted to stop it because it makes her nauseated. Prior to that, she had an IUD in place; because of the fibroids, this was removed. The patient has been traveling recently and has been on many flights, but she denies any history of leg swelling or redness. She has no history of DVTs in the past. She has had no hemoptysis, no cough, no dyspnea on exertion, and no chest pain. Rodo lyon was called in the ER. Telestroke was consulted and tPA was not recommended. In the ER, initial CT of the head showed no acute abnormalities. MRI of the brain showed no DWI and ADC map changes to suggest acute infarction. She did have an area of magnetic susceptibility blood product /hemosiderin within the left frontal white matter without acute hemorrhage on recent head CT measuring 5 to 6 mm in diameter. Cavernous malformation and amyloid angiopathy are within the differential. Followup MRI with contrast was recommended. There are also few small foci of FLAIR hyperintensity within the cerebral white matter, which is nonspecific in nature. She had a CT angiogram of the head and neck in the ER. This showed mild stenosis of the proximal M3 segment of the right middle cerebral artery on the nonsymptomatic side, mild ectasia of the proximal basilar artery. CT angiogram of the neck showed some artifactual limitations, but no significant stenosis or occlusion of the right or left internal carotid arteries. Vertebral arteries were dominant with no stenosis or occlusive disease. Left vertebral was dominant. She also had a thyroid nodule, [address] in the ER also showed no acute intracranial abnormality. Interestingly, her blood pressure at the time of arrival was elevated at 213/117. She was given labetalol in the ER with some improvement although her blood pressures have remained elevated. She does not have any history of hypertension in the past. She has no history of diabetes. She was a smoker in her 20s but has not smoked for years. PAST MEDICAL HISTORY: As noted above. PAST SURGICAL HISTORY: Includes fibroid surgery. She has also had a left oophorectomy for a cyst, right knee surgery, tonsillectomy. She had a breast biopsy about 2 weeks ago which showed benign mass, breast reduction. MEDICATIONS: 1. She is on some vitamins. 2. She is on Lessina 28 control pills. 3. Occasional iron. Medications right now: 1. Tylenol 650 mg p.o. q.4 hours p.r.n. 2. Aspirin 81 mg a day. 3. Lipitor 80 mg p.o. once. 4. Lipitor 80 mg at night. 5. Plavix 75 mg daily. ALLERGIES: No known drug allergies. FAMILY HISTORY: She has several paternal uncle and several paternal cousins who had heart attacks but later in life. Her mother had diabetes and breast cancer, and her father had nasopharyngeal carcinoma and at age 51. 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 She is . She denies any alcohol or drug use. Her surrogate decision maker is her . REVIEW OF SYSTEMS: Review of systems in 14-organ systems as noted above, otherwise negative. PHYSICAL EXAM: Vital signs as noted. Her current vital signs; temperature of 97.9, pulse rate of 63, respiratory rate of 16, O2 sat of 97, blood pressure is 157/92 to 157/92 to 143/78, this is down from presentation. In general, she is a well-nourished, well-developed, overweight female in no acute distress. She is lying in her hospital bed. She is pleasant, well dressed, well groomed. HEENT: She is normocephalic, atraumatic. Sclerae are anicteric. Mucous membranes are moist. Oropharynx is clear. Nares are patent. Neck is supple. No thyromegaly. No carotid bruits. No meningismus. Chest: Clear to auscultation bilaterally. Cardiovascular: Regular rate and rhythm without murmurs, gallops, or rubs. Abdomen: Nontender and nondistended. Extremities: No clubbing, cyanosis or edema is appreciated. Her skin is warm and dry. Neurologic Examination: She is awake, alert, and oriented x3. Her speech is fluent. There is no dysarthria. Repetition in intact. Recall of recent recent and remote events is intact. Vocabulary is intact. Her mood is dysthymic, affect mood congruent. Cranial nerves II through XII: Pupils were equal, round, and reactive to light and accommodation. Extraocular muscles are intact without nystagmus or diplopia. No ptosis is noted. Visual jones are full to confrontation. Her face; facial sensation is intact to light touch throughout. Facial symmetry: She has a very subtle right lower facial droop, but this may be her baseline. Hearing is intact bilaterally. Palate raises symmetrically. Tongue is midline. Her sternocleidomastoid is 5/5. Motor Exam : She has 5/5 throughout. Tone and bulk are both normal. No drift in the upper or lower extremities. Sensation is intact to light touch and pinprick throughout. No focal deficits. DTRs are 2+ and symmetric in the upper and lower extremities without focal deficits. Downgoing Babinski's. Jsqdaj-rt-hvcy , rapid alternating movements are intact without ataxia or tremor. Gait: She has been ambulating without difficulty. DIAGNOSTIC STUDIES/LAB DATA: Lab work includes a CBC with diff, it was normal. APTT of 31, INR of 0.92. Complete metabolic profile was normal. Hemoglobin A1c of 5.4. Lactic acid 0.8. Cholesterol of 219, LDL of 129, HDL of 60.5. Vitamin B12 of 290. TSH of 2.06. Imaging: As noted above. ASSESSMENT: Ms. Álvarez is a 48-year-old female with a history of uterine fibroids; no prior history of strokes, blood clots, high blood pressure who presented to the hospital late afternoon after developing right-sided tingling in her arm, right- sided facial numbness and tingling and what she perceived as a right lower facial droop. She also had a headache behind the left eye with this. She has no history of migraine headaches. She took Aleve, her symptoms started to improve, and by the time she arrived in the ER, her symptoms had largely improved with no focal deficits and some mild headache. Telestroke was called. It was felt that she was not a tPA candidate. In the ER, her blood pressure was elevated and she was given some medication for that. She denies any prior history of hypertension. MRI of the brain showed what could be a small cavernous angioma. I recommended MRI with contrast which is pending. Echocardiogram is pending as well. PLAN: 1. I had a long discussion with the patient. We discussed the fact that while these could be complicated migraines versus hypertensive urgency/emergency, we cannot completely rule out a TIA, especially in light of the fact that she has been on hormonal therapy and that her blood pressure was elevated despite the fact that she has no prior history that she is aware of. I would recommend dual antiplatelet therapy for 30 days and then drop the Plavix and continue aspirin 81 mg q. day. 2. Recommend continued monitoring and control of blood pressure as necessary to normalize. 3. She is not a diabetic. 4. She is not a smoker. 5. Her LDL cholesterol is 129. The patient is adamant about not wanting to be on a statin medication. We discussed the importance especially in light of a TIA of keeping the LDL cholesterol especially down. She would like to try diet control first, so I will discontinue her statin. She knows to follow up with her primary care closely to make sure that the LDL is coming down, and if she cannot get it below 100, I recommended restarting the statin, she is okay with this plan. At this point, her symptoms have completely resolved. If her echocardiogram is normal and her MRI of the brain with contrast shows no acute abnormalities, I think we can follow her over time and I would like to see her back in my clinic in about 8 weeks. She can make an appoint with Jasbir Gonzales. She did have a thyroid nodule noted on her CT angiogram and this is something that can be followed up as an outpatient. Her TSH was 2.06. My plan is to sign off for now, but should the echocardiogram or MRI with contrast show any abnormalities, please call. Otherwise, I will plan to see her back in clinic in about 8 weeks. She knows to return to the ER immediately should she have any new stroke-like symptoms and she is going to stop her control pill, which I recommended. Thank you for the opportunity to participate in the care of this very interesting patient. [id number]/[facility] [place] #: [id number] JACKIE
[2019-06-25] MEDS ORDERED: Lisinopril TAB* 5 MG PO SCH (14:00)
--- NOTE | 2019-06-25 15:23 | ECHO ---
*[facility]* [place] [address] Fax #: [phone] Transthoracic Echocardiogram Patient: Kathy Álvarez : 1970 Study Date: 06/25/2019 Age: 48 Gender: F HR: 65 bpm Height: 68 in /172.7 cm BSA: 2 m^2 Weight: 189.6 lb /86.2 kg BMI: 28.9 kg/m^2 *Apricot Packer: * Nini Hodge [facility] *Referring Physician: * Melody Wyman *Reading Physician: * Emmanuel Carbajal MD Indications: TIA. History: Risk factors: Former tobacco use. Conclusions Summary: - Left ventricle: Systolic function is normal. The estimated ejection fraction is 55-60%. Wall motion is normal; there are no regional wall motion abnormalities. - Right ventricle: Systolic function is normal. - Atrial septum: Negative Bubble Study. Images 83 and 84. - Mitral valve: There is trace to mild regurgitation. - Aortic valve: There is no evidence of stenosis. - Tricuspid valve: There is trace to mild regurgitation. - Pericardium, extracardiac: There is no significant pericardial effusion. - Pulmonary arteries: Systolic pressure is within the normal range. Study data: Transthoracic echocardiogram. Procedure: Transthoracic echocardiography was performed. Image quality was fair. A bubble study was performed. Complete 2D, spectral Doppler, and color flow Doppler. Location: Bedside. Patient status: Inpatient. Patient room number: 453. Rhythm: Normal sinus rhythm. Findings Left ventricle: The cavity size is normal. Wall thickness is normal. Systolic function is normal. The estimated ejection fraction is 55-60%. Wall motion is normal; there are no regional wall motion abnormalities. There is no consistent Doppler evidence of clinically significant diastolic dysfunction. Right ventricle: The cavity size is mildly dilated. Wall thickness is at the upper limits of normal. Systolic function is normal. Systolic pressure is within the normal range. Left atrium: The atrium is normal in size. Right atrium: The atrium is normal in size. Atrial septum: A PFO is not demonstrated by color Doppler or agitated saline contrast. Negative Bubble Study. Images 83 and 84. Mitral valve: The leaflets are mildly thickened. There is no evidence of stenosis. There is trace to mild regurgitation. Aortic valve: The valve is trileaflet. The leaflets are mildly thickened. There is no evidence of stenosis. There is no significant regurgitation. Tricuspid valve: The leaflets are normal thickness. There is no evidence of stenosis. There is trace to mild regurgitation. Pulmonic valve: The leaflets are normal thickness. There is no evidence of stenosis. There is trace regurgitation. Aorta: Ascending aorta: The ascending aorta is appears normal. The aortic root appears normal. The aortic arch appears normal. Pericardium: A prominent pericardial fat pad is present. There is no significant pericardial effusion. Pulmonary arteries: The main pulmonary artery is normal-sized. Systolic pressure is within the normal range. Systemic veins: Inferior vena cava: The vessel is normal in size. There is (>= 50%) respiratory change in the IVC dimension. Pulmonary veins: The Pulmonary veins appear normal. Measurements Left ventricle Value Ref Aortic valve continued Value Ref SAE, LAX 5.2 cm 3.8 - 5.2 Mean grad, S 5.0 mm Hg ----- ESD, LAX 3.3 cm 2.2 - 3.5 Peak grad, S 9.0 mm Hg ----- FS, LAX 37 % 27 - 45 LVOT/AV, VTI ratio 0.66 ----- PW, ED, LAX 0.9 cm 0.6 - 0.9 FS 37 % 27 - 45 Mitral valve Value Ref PW, ED 0.9 cm 0.6 - 0.9 Peak E 0.92 m/sec ----- E', lat benson, TDI (L) 9.9 cm/sec >=10.0 Peak A 0.75 m/sec - ---- E/e', lat benson, 9 Decel time 173 ms ---- - TDI Peak grad, D 3.4 mm Hg ----- E', med benson, TDI 8.1 cm/sec >=7.0 Peak E/A ratio 1.2 - ---- E/e', med benson, 11 TDI Pulmonic valve Value Ref E', avg, TDI 9.0 cm/sec Peak v, S 0.92 m/sec ---- - E/e', avg, TDI 10 <=14 Peak grad, S 3.0 mm Hg - ---- LVOT Value Ref Tricuspid valve Value Ref Peak vanessa, S 0.88 m/sec TR peak v 2.3 m/sec <=2.8 VTI, S 21.0 cm Peak RV-RA grad, S 21 mm Hg ----- Mean grad, S 2 mm Hg Aortic root Value Ref Ventricular septum Value Ref Root diam 2.8 cm <4.1 IVS, ED 0.9 cm 0.6 - 0.9 Root max diam, ED 2.8 cm <4.1 Right ventricle Value Ref Ascending aorta Value Ref AW thickness, ED 0.5 cm 0.1 - 0.5 AAo AP diam, S 3.1 cm ----- ASE, LAX 4.1 cm SAE minor ax, A4C (H) 3.6 cm 1.9 - 3.5 Aortic arch Value Ref mid Arch diam 2.0 cm ----- Pressure, S 24 mm Hg Decending aorta Value Ref Left atrium Value Ref Annabelle peak vanessa 0.82 m/sec ----- AP dim, ES 3.60 cm 2.70 - 3.80 Pulmonary artery Value Ref ML dim, A4C 4.0 cm Pressure, S 21.0 mm Hg ----- SI dim, A4C 6.0 cm Vol/bsa, ES, 1-p 21 ml/m^2 11 - 40 Inferior vena cava Value Ref A4C Diam 1.6 cm ----- Vol/bsa, ES, A/L 24 ml/m^2 16 - 34 Pulmonary veins Value Ref Right atrium Value Ref Peak v, S 0.46 m/sec ----- RA ID, major 5.1 cm Peak v, D 0.31 m/sec ----- RA ID, minor 4.2 cm Peak S/D ratio 1.5 ----- Estimated RAP 3 mm Hg A rev duration 113 ms ----- Aortic valve Value Ref Benson diam, ED 2.1 cm Peak v, S 1.46 m/sec VTI, S 31.6 cm Legend: (L) and (H) danna values outside specified reference range. Prepared and electronically signed by Emmanuel Carbajal MD 06/25/2019 15:23
[2019-06-25 16:36] VITALS: BP 141/82
[2019-06-25] MEDS ORDERED: Atorvastatin* 80 MG TAB PO ONE (21:00)
--- NOTE | 2019-06-25 21:28 | DS ---
CC: Dr. Lupe De La Vega; Dr. Rich Whitehead * DISCHARGE SUMMARY: DATE OF ADMISSION: 06/24/19 DATE OF DISCHARGE: 06/25/19 PRIMARY CARE PROVIDER: Dr. Lupe De La Vega. NEUROLOGIST: Dr. Thong Whitehead who follows with the patient as an outpatient. PRIMARY DIAGNOSIS: Transient right hand and arm numbness and tingling, admitted for rule out transient ischemic attack associated with hypertensive urgency. SECONDARY DIAGNOSES: 1. Fibroid uterus, currently on oral contraceptives. 2. History of right knee surgery. 3. History of benign breast mass. MEDICATIONS ON DISCHARGE: 1. Aspirin 81 mg. 2. Clopidogrel 75 mg. 3. Lisinopril 5 mg. Of note, the patient declined statin. Medication changes that occurred on this hospitalization include the addition of above and d/c of oral OCP. HISTORY OF PRESENT ILLNESS AND HOSPITAL COURSE: A 48-year-old female with no significant past medical history other than fibroid uterus, who presented with acute onset of right forearm and hand numbness and tingling accompanied with confusion and momentary right facial droop. The patient reports that in the afternoon, she was trying to type her password on the computer and what she was typing did not correlate with what was showing up on the screen. The numbness and tingling started in her hand and progressed to the right side of her face and the symptoms lasted for about 15 to 20 minutes and resolved wholly in 30 minutes. She also reported that she was having trouble focusing during this time, although denies that there was any difficulty with her speech, swallowing , or loss of motor function in her upper or lower extremities. She then noted that the numbness and tingling subsided and she got a severe headache located behind her left eye. She decided to present to the emergency room where her vital signs were notable for hypertension with systolic blood pressure to 215, but otherwise vital signs reassuring. She had a normal neurologic exam on presentation to the emergency room and an NIH stroke scale of 0. 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 Because of her hypertension and transient neurologic symptoms, the patient was admitted to the hospital for a workup of transient ischemic attack and her hospital course by problems is as follows: 1. Transient neurologic symptoms of right arm numbness and tingling that radiated to face. The patient had no further neurologic symptoms. Above imaging was done and Neurology was consulted who, given the abnormal left frontal white matter changes, also recommended a brain MRI with contrast, which was ultimately done on 06/25/19, which again showed incidental cavernous angioma and less likely concerning for other pathologies that would be correlative with her presenting symptoms. Neurology consulted with the patient and felt that her presentation was possible for hypertensive emergency given her significant hypertension on the admission, but they could not rule out transient ischemic attack given the accompanied hypertension and convincing transient symptoms with clear neurologic underpinnings. An echo-cardiogram was pursued to rule out left atrial clot and PFO, which was negative. Ultimately, Neurology recommended aspirin and Plavix for 30 days after discharge and recommended continuing with aspirin 81 mg moving forward. The patient, of note, is on oral contraceptives for symptomatic management of her fibroids and she elected to self-discontinue these, although there was no evidence of jarett thromboembolism. Of note, from a secondary prevention standpoint, the patient did have a cholesterol panel drawn and her LDL was 122. Ideally with the possibility of a TIA, the patient will be started on statin. This has been discussed with her primary and Neurology and ultimately she declines statin and elects to trial with diet and exercise and follow up with primary care for recheck lipid panel within 6 to 8 months and make determination about moderate intensity statin at that time. 2. Hypertension. The patient has no history of essential hypertension, although it is unclear if there was the possibility of essential hypertension leading to an acute episode causing hypertensive emergency with her associated neurologic symptoms. She had permissive hypertension within the first 24 hours of her hospitalization and was treated in the emergency room with labetalol to lower her systolic blood pressure from 215 on presentation to 170 by hospital day 2. Her systolic blood pressure remained in the systolic 140s and lisinopril 5 mg was started for further optimization and can be titrated by primary care. 3. Fibroids. The patient has elected to self-discontinue her oral contraceptives. 4. DVT prophylaxis. The patient was placed on SCDs while in the hospital. On day of discharge, the patient was ambulating, voiding freely with no neurologic deficits. Blood pressure improved to systolic 130s to 140s and is stable for discharge to home. LABS AND STUDIES DONE DURING THIS HOSPITALIZATION: CBC: White blood cell count 6.3, hemoglobin 13.9, hematocrit 40, platelets 247. CMP: Sodium 138, potassium 3.9, chloride 107, carbon dioxide 25, BUN 14, creatinine 0.92, glucose 96. Hemoglobin A1c 5.4. AST 13, ALT 10, alk phos 49. Troponin 0. Cholesterol 219. LDL 129. TSH 2.06. UA with blood, white blood cells, but also with squamous epithelial cells representing unclean sample. Imaging includes non-contrast brain CT with no acute intracranial pathology, brain MRI with incidental left frontal likely cavernous angioma, 5 to 6 mm; head CTA showing M3 segment mild narrowing of right middle cerebral artery, also incidental thyroid nodule was noted, 7 mm hypodense nodule; brain MRI with contrast showed again incidental left frontal white matter findings, but no other acute infarcts. EKG was pursued, which showed normal sinus rhythm with no acute ischemia. CONSULTANTS DURING THIS HOSPITALIZATION: Include Neurology who have requested that the patient to follow up with them in 4 to 6 weeks. ITEMS TO FOLLOW UP ON STATUS POST DISCHARGE: 1. TIA. While myriad of differential diagnosis could have represented this patient's presentation, transient ischemic attack given mildly elevated cholesterol with combination of oral contraceptives and high blood pressure cannot be ruled out. Thus, it is reasonable to treat the patient with aspirin and Plavix for 30 days, then continue with monotherapy aspirin. Ideally, the patient will be started on a statin from a secondary prevention standpoint, although she has elected to hold on starting these medications, followup with primary care and recheck lipids in 6 to 8 months after working on diet alone. Ideally, LDL will be less than 100. She was more open to moderate intensity statin versus high intensity statin and it is reasonable to have a shared decision making discussion with her on these matters moving forward. Furthermore, whether essential hypertension is a true diagnosis or within the setting of emergency room white coat hypertension will have to be sussed out on subsequent blood pressure readings. 2. Essential hypertension? Again, the patient has no history of hypertension, although certainly represented with hypertensive urgency versus emergency in the event that these neurologic symptoms were in fact caused by hypertension. She was started on lisinopril 5 mg, can be titrated by primary care as needed or discontinued altogether if this did not in fact represent a true diagnosis for her. This is a summary of a complex presentation and for more information, please do not hesitate to reach out and contact me directly at my cellphone, which is [phone]. Physical exam was done on day of discharge and will be found in the daily progress note. She is without neurologic deficit on the day of discharge. DISPOSITION: At the time of discharge is stable to return to home. TIME SPENT: Thirty five minutes were spent on the planning on this discharge and over half of that was spent directly at the bedside with the patient providing direct patient care. [id number]/[facility] #: [id number] JACKIE
== END 2019-06-25 16:50 | disposition home or self-care (01) ==
LOC: ED 17:50 → MEDTELE 21:24
PROVIDERS: ADMIT Internal Medicine; ATTEND Internal Medicine
DX: R20.0 Anesthesia of skin (principal); R20.2 Paresthesia of skin; I16.0 Hypertensive urgency; E04.1 Nontoxic single thyroid nodule; D25.9 Leiomyoma of uterus, unspecified; Z79.82 Long term (current) use of aspirin; Z79.3 Long term (current) use of hormonal contraceptives; R51 Headache; D64.9 Anemia, unspecified; Z86.79 Personal history of other diseases of the circulatory system; Z87.891 Personal history of nicotine dependence
CPT/HCPCS: 36415; 70450; 70496; 70498; 70551; 70552; 71045; 80053; 80061; 81003; 81015; 82607; 83036; 83605; 84443; 84484; 85025; 85610; 85730; 87077; 87086; 87186; 93005; 93306; 96361; 96374; 99285; A9270-GY; A9579; G0378; G8978-GP-CH; G8979-GP-CH; G8980-GP-CH; Q9967